=== PATIENT | female | born 1965 | race Caucasian/White ===

== ENCOUNTER 2017-02-04 17:19 | Emergency (ER) | payer OTHER ==
[2017-02-04 17:25] VITALS: BP 134/77; PULSE 75; TEMP 98.1; BMI 33.3
--- NOTE | 2017-02-04 17:55 | PDOC ---
History of Present Illness - General History Source: Patient Exam Limitations: No Limitations - History of Present Illness Initial Comments: 02/04/17 18:28 Patient is a 51 year female with no significant past medical history who presents to the ED with lower abdominal pain for 15 days. Patient states that she has been experiencing LLQ pain for 15 days intermittently. She notes that the pain is 7/10 now radiating to the back. She also reports urinary frequency. She denies nausea, vomiting, diarrhea or constipation. She denies dysuria, hematuria, or hesitancy. Patient is visiting her daughter from [place] and is planning to move to [place], [place]. SH: she denies smoking, IVDU, or alcohol use. ALL: NKA <Mikaela Cisneros - Last Filed: 02/04/17 18:27> <Pedro Luis Beyer - Last Filed: 02/05/17 00:31> - General Chief Complaint: Pain Stated Complaint: LIGHTHEADED Time Seen by Provider: 02/04/17 17:54 Past History <Mikaela Cisneros - Last Filed: 02/04/17 18:27> - Past Medical History Other medical history: NONE - Psycho/Social/Smoking Cessation Hx Anxiety: No Suicidal Ideation: No Smoking History: Never smoked Hx Alcohol Use: No Substance Use Type: None <Pedro Luis Beyer - Last Filed: 02/05/17 00:31> - Past Medical History Allergies/Adverse Reactions: Allergies Allergy/AdvReac Type Severity Reaction Status Date / Time No Known Allergies Allergy Verified 02/04/17 17:25 Home Medications: Ambulatory Orders NK [No Known Home Medication] 02/04/17 Review of Systems - Review of Systems Able to Perform ROS?: Yes Comments:: 02/04/17 18:29 CONSTITUTIONAL: No fever, no chills, no fatigue EYES: No visual changes ENT: No ear pain, no sore throat CARDIOVASCULAR: No chest pain, no palpitations RESPIRATORY: No cough, no SOB GI: +abdominal pain. No nausea, no vomiting, no constipation, no diarrhea GENITOURINARY: No dysuria, no frequency, no hematuria MUSCULOSKELETAL: No back pain, no joint pain, no myalgias SKIN: No rash NEURO: No headache <Mikaela Cisneros - Last Filed: 02/04/17 18:27> *Physical Exam - Vital Signs Last Vital Signs Temp Pulse Resp BP Pulse Ox 98.1 F 75 20 134/77 100 02/04/17 17:22 02/04/17 17:22 02/04/17 17:22 02/04/17 17:22 02/04/17 17:22 - Physical Exam Comments: 02/04/17 18:30 CONSTITUTIONAL: Well-appearing; well-nourished; in no apparent distress HEAD: Normocephalic; atraumatic EYES: PERRL; EOM intact ENMT: External appears normal; normal oropharynx NECK: Supple; non-tender; no cervical lymphadenopathy CARD: Normal S1, S2; no murmurs, rubs, or gallops RESP: Normal chest excursion with respiration; breath sounds clear and equal bilaterally; no wheezes, rhonchi, or rales ABD: (+) mild RLQ tenderenss and LLQ tenderness, no guarding or rebound, no CVA. Soft, non-distended; no palpable organomegaly, no palpable hernias EXT: Normal ROM in all four extremities; non-tender to palpation; distal pulses intact SKIN: Warm, dry, no rash NEURO: No focal neurological deficiencies. <Mikaela Cisneros - Last Filed: 02/04/17 18:27> - Vital Signs Last Vital Signs Temp Pulse Resp BP Pulse Ox 98.1 F 75 20 134/77 100 02/04/17 17:22 02/04/17 17:22 02/04/17 17:22 02/04/17 17:22 02/04/17 17:22 <Pedro Luis Beyer - Last Filed: 02/05/17 00:31> ED Treatment Course - LABORATORY CBC & Chemistry Diagram: 02/04/17 17:50 02/04/17 17:50 - ADDITIONAL ORDERS Additional order review: Laboratory Results 02/04/17 17:50 Urine Color Ltyellow Urine Appearance Clear Urine pH 7.0 Urine Protein Negative Urine Glucose (UA) Negative Urine Ketones Negative Urine Blood 2+ H Urine Nitrite Negative Urine Bilirubin Negative Urine Urobilinogen Negative Ur Leukocyte Esterase Trace H 02/04/17 17:50 RBC 4.49 MCV 86.9 MCHC 33.5 RDW 13.1 MPV 7.5 Neutrophils % 47.8 Lymphocytes % 41.9 H Monocytes % 8.6 Eosinophils % 1.2 Basophils % 0.5 <Mikaela Cisneros - Last Filed: 02/04/17 18:27> - LABORATORY CBC & Chemistry Diagram: 02/04/17 17:50 02/04/17 17:50 <Pedro Luis Beyer - Last Filed: 02/05/17 00:31> Medical Decision Making - Medical Decision Making 02/04/17 19:55 Patient is a well-appearing 51-year-old female who presents with intermittent lower abdominal pain for the past 2 weeks, that has increased in severity with a past several days, most prominent suprapubically and in the left lower quadrant. Differential diagnoses includes fibroid uterus versus diverticulitis. Will obtain CBC/CMP/UA. Will obtain transvaginal pelvic/bladder ultrasound. Will consider CT. Will reassess. 02/04/17 21:05 Patient reassessed. Patient continues to have lower abdominal pain. Transvaginal son reveals no evidence of fibroid uterus or ovarian pathology. Will obtain CT with by mouth and IV contrast. 02/05/17 00:29 pt is resting comfortably, pain free, williams po. ct of abd and pelvis shows no acute intrabdominal pathology. will d/c with [facility] f/u. <Pedro Luis Beyer - Last Filed: 02/05/17 00:31> *DC/Admit/Observation/Transfer - Attestations Scribe Attestion: 02/04/17 18:32 Documentation prepared by CHLOÉ Brambila, acting as director medical surgical for Pedro Luis Beyer MD. <Mikaela Cisneros - Last Filed: 02/04/17 18:27> - Attestations Physician Attestion: 02/04/17 19:55 The documentation was prepared by the scribe under my direct supervision. I have reviewed the documentation which correctly represents the findings, medical decision-making and critical action taken by me. <Pedro Luis Beyer - Last Filed: 02/05/17 00:31> Diagnosis at time of Disposition: Abdominal pain Qualifiers: Abdominal location: lower abdomen, unspecified Qualified Code(s): R10.30 - Lower abdominal pain, unspecified - Discharge Dispostion Disposition: HOME Condition at time of disposition: Stable - Referrals Referrals: [facility] [Provider Group] - Patient Instructions Printed Discharge Instructions: DI for Abdominal Pain-Adult Print Language: TRISTANIAN
[2017-02-04 18:09] LABS: BASOPHIL 0.5 % (0-2.0); EOSINOPHIL 1.2 % (0-4.5); MCH 29.1 pg (25.7-33.7); MCHC 33.5 g/dl (32.0-36.0); MEAN CELL VOLUME 86.9 fl (80-96); MEAN PLT VOLUME 7.5 fl (7.5-11.1); NEUTROPHILS 47.8 % (42.8-82.8); PLATELET COUNT 263 K/MM3 (134-434); RDW 13.1 % (11.6-15.6); WHITE BLOOD COUNT 9.8 K/mm3 (4.0-10.0)
[2017-02-04 18:10] LABS: URINE APPEARANCE CLEAR; URINE BILIRUBIN NEGATIVE (NEGATIVE); URINE COLOR LTYELLOW; URINE GLUCOSE (UA) NEGATIVE (NEGATIVE); URINE KETONE NEGATIVE (NEGATIVE); URINE NITRITE NEGATIVE (NEGATIVE); URINE PROTEIN NEGATIVE (NEGATIVE); URINE UROBILINOGEN NEGATIVE mg/dL (0.2-1.0)
[2017-02-04] MEDS ORDERED: SODIUM CHLORIDE 500 ML IV STA (18:13)
[2017-02-04 18:22] LABS: URINE BLOOD 2+ (NEGATIVE); URINE LEUK ESTERASE TRACE (NEGATIVE)
[2017-02-04 18:28] LABS: URINE MUCUS RARE; URINE RBC 10 /hpf (0-3); URINE WBC 1 /hpf (3-5)
[2017-02-04 18:52] LABS: ALBUMIN 3.8 g/dl (3.4-5.0); ANION GAP 6 (8-16); BILIRUBIN,TOTAL 0.7 mg/dL (0.2-1.0); CALCIUM 9.3 mg/dL (8.5-10.1); CO2 30 mmol/L (21-32); CREATININE 0.6 mg/dL (0.55-1.02); GLUCOSE,RANDOM 89 mg/dL (74-106); SGOT/AST 25 U/L (15-37); SGPT/ALT 32 U/L (12-78)
[2017-02-04 18:53] LABS: ALK PHOS 95 U/L (45-117)
== END 2017-02-05 00:45 | disposition home or self-care (01) ==
LOC: JER 17:19
PROC: 3E0337Z Introduction of Electrolytic and Water Balance Substance into Peripheral Vein, Percutaneous Approach (ICD-10-PCS; principal; 2017-02-04)
DX: R10.30 Lower abdominal pain, unspecified (principal)
CPT/HCPCS: 36415; 74177-TC; 76830-TC; 76856-TC; 80053; 81003; 81015; 85025; 99282-25; Q9967

== ENCOUNTER 2022-09-05 15:46 | Observation (INO) | payer OTHER ==
[2022-09-05 17:42] LABS: BASO % 0.7 % (0-2.0); EOS % 0.3 % (0-4.5); HEMATOCRIT 39.5 % (32.4-45.2); HEMOGLOBIN 13.5 GM/dL (10.7-15.3); LYMPH % 21.5 % (8-40); MCH 30.6 pg (25.7-33.7); MCHC 34.3 g/dl (32.0-36.0); MEAN CELL VOLUME 89.3 fl (80-96); MEAN PLT VOLUME 7.4 fl (7.5-11.1); MONO % 6.7 % (3.8-10.2); NEUT % 70.8 % (42.8-82.8); PLATELET COUNT 284 10^3/uL (134-434); RBC 4.42 M/mm3 (3.60-5.2); RDW 13.5 % (11.6-15.6); WHITE BLOOD COUNT 12.1 K/mm3 (4.0-10.0)
[2022-09-05 18:08] LABS: CALCIUM 9.9 mg/dL (8.5-10.1)
[2022-09-05 18:09] LABS: ALBUMIN 4.1 g/dl (3.4-5.0); BLOOD UREA NITROGEN 12.5 mg/dL (7-18)
[2022-09-05 18:12] LABS: CREATININE 0.7 mg/dL (0.55-1.3)
[2022-09-05 18:13] LABS: BILIRUBIN,TOTAL 0.5 mg/dL (0.2-1); TOT PROT 8.3 g/dl (6.4-8.2)
[2022-09-05] MEDS ORDERED: ACETAMINOPHEN 1000 MG/100 ML BAG IVPB ONE (18:24)
[2022-09-05 18:33] LABS: EPI CELLS 3 /uL (0-25.1); HYALINE CASTS 0 /uL (0-3.1); URINE APPEARANCE CLEAR; URINE BACTERIA 12 /uL (0-1359); URINE BILIRUBIN NEGATIVE (NEGATIVE); URINE COLOR YELLOW; URINE GLUCOSE (UA) NEGATIVE (NEGATIVE); URINE KETONE NEGATIVE (NEGATIVE); URINE LEUK ESTERASE TRACE (NEGATIVE); URINE NITRITE NEGATIVE (NEGATIVE); URINE PROTEIN NEGATIVE (NEGATIVE); URINE RBC 43 /uL (0-23.9); URINE UROBILINOGEN 0.2 mg/dL (0.2-1.0); URINE WBC 15 /uL (0-25.8)
[2022-09-05] MEDS ORDERED: ACETAMINOPHEN INJECTION 100 ML IVPB ONE (18:40)
[2022-09-05] MEDS ORDERED: SODIUM CHLORIDE 0.9% 500 ML INFUS.BAG IV ONE (20:54)
[2022-09-05 21:22] LABS: INR 1.08 (0.83-1.09); PROTHROMBIN TIME (PATIENT) 12.5 SEC (9.7-13.0)
[2022-09-05 21:25] LABS: ACTIVATED PTT 28.8 SECONDS (25.2-36.5)
[2022-09-05 21:52] LABS: ERYTHROCYTE SEDIMENTATION RATE 18 mm/hr (0-30)
[2022-09-05 22:46] LABS: METHADONE, UR NEGATIVE (NEGATIVE); OPIATES, URI NEGATIVE (NEGATIVE); URINE BARBITURATES NEGATIVE (NEGATIVE); URINE BENZODIAZEPINES NEGATIVE (NEGATIVE)
[2022-09-05 22:54] LABS: PHENCYCLIDINE,URINE NEGATIVE (NEGATIVE)
[2022-09-05 23:03] LABS: COCAINE, UR NEGATIVE (NEGATIVE)
[2022-09-05 23:06] LABS: URINE AMPHETAMINES NEGATIVE (NEGATIVE)
[2022-09-06 06:55] VITALS: BMI 34.8
[2022-09-06 07:48] LABS: BASO % 0.9 % (0-2.0); EOS % 1.2 % (0-4.5); HEMATOCRIT 38.6 % (32.4-45.2); HEMOGLOBIN 12.9 GM/dL (10.7-15.3); LYMPH % 32.3 % (8-40); MCHC 33.4 g/dl (32.0-36.0); MEAN CELL VOLUME 89.9 fl (80-96); MEAN PLT VOLUME 7.8 fl (7.5-11.1); MONO % 7.6 % (3.8-10.2); PLATELET COUNT 248 10^3/uL (134-434); RDW 13.6 % (11.6-15.6); WHITE BLOOD COUNT 6.8 K/mm3 (4.0-10.0)
[2022-09-06 08:18] LABS: ALBUMIN 3.4 g/dl (3.4-5.0)
[2022-09-06 08:19] LABS: CALCIUM 8.7 mg/dL (8.5-10.1); MAGNESIUM 2.1 mg/dL (1.8-2.4)
[2022-09-06 08:20] LABS: BLOOD UREA NITROGEN 11.9 mg/dL (7-18)
[2022-09-06 08:22] LABS: CREATININE 0.6 mg/dL (0.55-1.3); PHOSPHOROUS 3.7 mg/dL (2.5-4.9)
[2022-09-06 08:23] LABS: TOT PROT 6.9 g/dl (6.4-8.2)
[2022-09-06 08:29] LABS: CHOLESTEROL 194 mg/dL (50-200)
[2022-09-06 08:30] LABS: TRIGLYCERIDES 94 mg/dL (0-150)
[2022-09-06 08:31] LABS: LDL CHOLESTEROL (ONLY SJRH) 118 mg/dL (5-100)
[2022-09-06 08:32] LABS: HDL CHOLESTEROL 57 mg/dL (40-60)
[2022-09-06 08:54] VITALS: BP 106/60; PULSE 74; RESP 18; TEMP 98.2
[2022-09-06] MEDS ORDERED: ENOXAPARIN NA (PORCINE) 40 MG/0.4 ML DISP.SYRIN SQ SCH (10:00)
== END 2022-09-06 13:45 | disposition home or self-care (01) ==
LOC: JER 15:46 → JERBED 21:02 → J4W 09-06 04:25
PROVIDERS: ADMIT Internal Medicine; ATTEND Internal Medicine
PROC: 3E033NZ Introduction of Analgesics, Hypnotics, Sedatives into Peripheral Vein, Percutaneous Approach (ICD-10-PCS; principal; 2022-09-05)
PROC: 3E023GC Introduction of Other Therapeutic Substance into Muscle, Percutaneous Approach (ICD-10-PCS; 2022-09-05)
PROC: 3E0337Z Introduction of Electrolytic and Water Balance Substance into Peripheral Vein, Percutaneous Approach (ICD-10-PCS; 2022-09-05)
DX: F41.8 Other specified anxiety disorders (principal); F41.0 Panic disorder [episodic paroxysmal anxiety]; R55 Syncope and collapse; E66.8 Other obesity; Z68.34 Body mass index [BMI] 34.0-34.9, adult
CPT/HCPCS: 0241U-QW; 36415; 70450-TC; 71046-TC-FY; 71275-TC; 74174-TC; 76700-TC; 80053; 80061; 80307; 81003; 83036; 83735; 84100; 84443; 84484; 85025; 85379; 85610; 85651; 85730; 86140; 86850; 86900; 86901; 87086; 93005; 93010; 96361; 96372; 96374; 99285-25; G0378; Q9967

== ENCOUNTER 2022-10-27 04:34 | Day surgery (SDC) | payer OTHER ==
[2022-10-22 12:17] VITALS: BMI 29.0
[~2022-10-27 04:34] MED LIST: BUPIVACAINE HCL/PF 0.25% (2.5MG/ML) 10 ML VIAL IJ ONE; ceFAZolin SODIUM 1 GM VIAL IVPB ONE
[2022-10-27] MEDS ORDERED: BUPIVACAINE HCL/PF 0.25% (2.5MG/ML) 10 ML VIAL ONE (07:12)
[2022-10-27] MEDS ORDERED: KETAMINE HCL 500 MG/10 ML VIAL ONE (07:23)
[2022-10-27] MEDS ORDERED: MIDAZOLAM HCL 2 MG/2 ML SINGLE DOSE VIAL ONE (07:23)
[2022-10-27] MEDS ORDERED: ROCURONIUM BROMIDE 50 MG/5 ML SYRINGE ONE ×2 (07:31→08:52)
[2022-10-27] MEDS ORDERED: PROPOFOL 40 ML ONE (07:31)
[2022-10-27] MEDS ORDERED: SUCCINYLCHOLINE CHLORIDE 200 MG/10 ML SYRINGE ONE (07:31)
[2022-10-27] MEDS ORDERED: cefOXitin SODIUM 2 GM VIAL (RESTRICTED TO ID) IVPB ONE (08:20)
[2022-10-27] MEDS ORDERED: ceFAZolin SODIUM 1 GM VIAL IVPB ONE (08:30)
[2022-10-27] MEDS ORDERED: BUPIVACAINE HCL/PF 0.25% (2.5MG/ML) 10 ML VIAL IJ ONE (08:49)
[2022-10-27] MEDS ORDERED: PROPOFOL 20 ML ONE (08:51)
[2022-10-27 11:39] VITALS: RESP 16
[2022-10-27] MEDS ORDERED: oxyCODONE HCL 5 MG TABLET ONE (11:59)
[2022-10-27] MEDS ORDERED: oxyCODONE HCL 5 MG TABLET PO ONE (12:05)
[2022-10-27] MEDS ORDERED: oxyCODONE HCL 5 MG TABLET PO PRN (12:19)
[2022-10-27 13:21] VITALS: BP 101/63; PULSE 63; TEMP 97.5
== END 2022-10-27 13:10 | disposition home or self-care (01) ==
LOC: JASU-SURG 04:34
PROVIDERS: ATTEND Surgery
PROC: 0FT44ZZ Resection of Gallbladder, Percutaneous Endoscopic Approach (ICD-10-PCS; principal; 2022-10-27 08:00)
DX: K81.1 Chronic cholecystitis (principal)
CPT/HCPCS: 88304-TC; 88311-TC; 94760